=== PATIENT | male | born 1985 | race Caucasian/White ===

== ENCOUNTER → 2016-06-08 | Outpatient (CLI) | payer BC ==
--- NOTE | 2016-06-08 14:44 | CR ---
EXAMINATION: Right shoulder HISTORY: Pain COMPARISON: None TECHNIQUE: 3 views FINDINGS/IMPRESSION: There is no acute osseous abnormality, dislocation, or fracture. Bone mineraliz ation and joint spaces appear normal.
== END ==
LOC: MW.CHORTHO 07:50
PROVIDERS: ATTEND Orthopaedic Surgery
DX: M25.511 Pain in right shoulder (principal)
CPT/HCPCS: 73030-26-RT; 73030-RT

== ENCOUNTER → 2016-06-15 | Outpatient (CLI) | payer OTHER, BC ==
[~2016-06-15] MED LIST: Gadobutrol 7.5 mMOL/7.5 ML SDV IVPUSH STA; Iopamidol 612 MG/ML 50 ML SDV IARTIC ONE
--- NOTE | 2016-06-15 15:18 | CR ---
EXAMINATION: Fluoro guided right shoulder arthrogram. HISTORY: Shoulder pain. 719.41. TECHNIQUE/PROCEDURE: Written informed consent was obtained from the patient. The site of the anterior rotator interval is marked under fluoroscopy. Under aseptic conditions usin g 1% lidocaine as local anesthesia 25-gauge needle was introduced into the joint space. A small amou nt of contrast test dose was injected which freely flowed into the joint space. Afterwards, 15 cc o f cocktail consisting of saline, gadolinium and local lidocaine including CT contrast was administer ed without difficulty. There was no passage of the contrast into the subacromial space. Most of the contrast is seen within the joint space and sub coracoid bursal region. IMPRESSION: Successful Fluoro guided right shoulder arthrogram without evidence for high-grade rotat or cuff tear.
--- NOTE | 2016-06-16 09:27 | MR ---
EXAMINATION: MRI arthrogram of the right shoulder HISTORY: Pain COMPARISON: Radiographs dated 06/08/2016 TECHNIQUE: Multiplanar and multisequence images obtained of the right shoulder following the intra-a rticular administration of Gadavist. FINDINGS: There is a type II acromion. Mild acromioclavicular osteoarthritic changes are noted. The supraspinatus and infraspinatus tendons appear intact. The long head biceps tendon is present within the bicipital groove. The subscapularis and teres minor tendons appear normal. The inferior glenohu meral ligament is preserved. There is a subtle tear of the glenoid labrum extending from the10:00 to 2:00 position. The glenohumeral articular cartilage appears preserved. There is no abnormal bone ma rrow signal. IMPRESSION: 1. Subtle SLAP tear from the 10:00 to 2:00 position. 2. Mild acromioclavicular osteoarthritic changes.
== END ==
LOC: MW.DI 10:47
PROVIDERS: ATTEND Orthopaedic Surgery
DX: M25.511 Pain in right shoulder (principal); S43.431A Superior glenoid labrum lesion of right shoulder, initial encounter; X58.XXXA Exposure to other specified factors, initial encounter; M19.011 Primary osteoarthritis, right shoulder
CPT/HCPCS: 23350; 73222; 77002; A9585; Q9967

== ENCOUNTER 2016-07-12 06:41 | Day surgery (SDC) | payer OTHER, BC ==
[~2016-07-12 06:41] MED LIST changes: -Gadobutrol 7.5 mMOL/7.5 ML SDV IVPUSH STA; -Iopamidol 612 MG/ML 50 ML SDV IARTIC ONE; +Lactated Ringers 1,000 ML IV SCH; +ceFAZolin 2 GM in Premix Bag 1 BAG IV SCH
[2016-07-12] MEDS ORDERED: Midazolam 1 MG/ML 2 ML SDV ONE (07:13)
[2016-07-12] MEDS ORDERED: Propofol 200 MG/20 ML SDV ONE (07:13)
[2016-07-12] MEDS ORDERED: Rocuronium 10 MG/ML 10 ML Syringe ONE (07:13)
[2016-07-12] MEDS ORDERED: Ondansetron 4 MG/2 ML SDV ONE (07:13)
[2016-07-12] MEDS ORDERED: Lidocaine 2% 5 ML SDV ONE (07:13)
[2016-07-12] MEDS ORDERED: fentaNYL 250 MCG/5 ML SDV ONE (07:14)
--- NOTE | 2016-07-12 07:38 | PCM.PREANE ---
Preanesthetic Assessment - Procedure Proposed Procedure: Right shoulder arthroscopy, possible repair - TBD - Anesthesia/Transfusion/Family Hx Anesthesia History: Prior Anesthesia Without Reaction Transfusion History: No Prior Transfusion(s) Intubation History: Unknown - Review of Systems General: No Symptoms Pulmonary: No Symptoms Cardiovascular: No Symptoms Gastrointestinal: No symptoms Neurological: Other (R shoulder pain and limited motion ) - Physical Assessment O2 Sat by Pulse Oximetry: 99 Respiratory Rate: 16 Vital Signs: Last Vital Signs Temp 98.4 F 07/12/16 06:56 Pulse 60 07/12/16 06:56 Resp 16 07/12/16 06:56 BP 129/79 07/12/16 06:56 Pulse Ox 99 07/12/16 06:56 Height: 6 ft Weight: 255 lb ASA Class: 2 Mental Status: Alert & Oriented x3 Airway Class: Mallampati = 2 Dentition: Reports: Normal Dentition (crowded frontal lowers) Thyro-Mental Finger Breadths: 3 Mouth Opening Finger Breadths: 3 ROM/Head Extension: Full Lungs: Clear to auscultation, Normal respiratory effort Cardiovascular: Regular Rate, Regular Rhythm, No Murmurs - Allergies Allergies/Adverse Reactions: Allergies Allergy/AdvReac Type Severity Reaction Status Date / Time Sulfa (Sulfonamide Allergy Rash Verified 07/10/13 11:34 Antibiotics) - Blood Blood Available: No Product(s) Available: None - Anesthesia Plan Pre-Op Medication Ordered: None - Acknowledgements Anesthesia Type Planned: General Anesthesia, Regional Block (Possible if repair done; counseled for risk/benefit) Pt an Appropriate Candidate for the Planned Anesthesia: Yes Alternatives and Risks of Anesthesia Discussed w Pt/Guardian: Yes Pt/Guardian Understands and Agrees with Anesthesia Plan: Yes PreAnesthesia Questionnaire Endocrine/Metabolic History: Reports: Obesity/BMI 30+ Dermatologic History: Reports: Eczema - Past Surgical History Head Surgeries/Procedures: Reports: None Musculoskeletal Surgical History: Reports: Arthroscopic knee, Other (see below) Other Musculoskeletal Surgeries/Procedures:: multiple knee surgeries - SUBSTANCE USE Smoking Status *Q: Former Smoker Tobacco Use Within Last Twelve Months: Other (see below) Recreational Drug Use History: No - HOME MEDS Home Medications: Home Meds . [No Known Home Meds] 07/08/16 [History] - CURRENT (IN HOUSE) MEDS Current Meds: Current Medications Hydrocodone Bitart/Acetaminophen ([place] 325-10 Mg) 1 - 2 tab PO Q4H PRN PRN Reason: Pain Lactated Ringer's (Ringers, Lactated) 1,000 mls @ 100 mls/hr IV ASDIRECTED [facility] Last Admin: 07/12/16 06:57 Dose: 100 mls/hr Cefazolin Sodium/Dextrose 2 gm (/ Premix) 50 mls @ 100 mls/hr IV ONCALL [facility] Ketorolac Tromethamine (Toradol) 10 mg PO Q6H PRN PRN Reason: Pain Stop: 07/17/16 08:01 Discontinued Medications Fentanyl (Sublimaze) Confirm Administered Dose 250 mcg .ROUTE .STK-MED ONE Stop: 07/12/16 07:15 Lidocaine (Xylocaine-Mpf 2%) Confirm Administered Dose 5 ml .ROUTE .STK-MED ONE Stop: 07/12/16 07:14 Midazolam HCl (Versed 1 Mg/Ml) Confirm Administered Dose 2 mg .ROUTE .STK-MED ONE Stop: 07/12/16 07:14 Ondansetron HCl (Zofran) Confirm Administered Dose 4 mg .ROUTE .STK-MED ONE Stop: 07/12/16 07:14 Propofol (Diprivan 20 Ml) Confirm Administered Dose 200 mg .ROUTE .STK-MED ONE Stop: 07/12/16 07:14 Rocuronium [place] (Zemuron) Confirm Administered Dose 100 mg .ROUTE .STK-MED ONE Stop: 07/12/16 07:14
[2016-07-12] MEDS ORDERED: HYDROmorphone 2 MG/ML Syringe ONE (07:41)
[2016-07-12] MEDS ORDERED: Acetaminophen/HYDROcodone 325-10 MG Tab PO PRN (08:00)
[2016-07-12] MEDS ORDERED: Ketorolac 10 MG Tab PO PRN (08:00)
[2016-07-12] MEDS ORDERED: fentaNYL 100 MCG/2 ML SDV IVPUSH PRN (09:10)
[2016-07-12] MEDS ORDERED: Bupivacaine 0.5% 10 ML SDV ONE (09:17)
[2016-07-12] MEDS ORDERED: Lidocaine 2% with EPINEPHrine 1:100,000 20 ML MDV ONE (09:19)
[2016-07-12] MEDS ORDERED: fentaNYL 100 MCG/2 ML SDV ONE (09:26)
[2016-07-12] MEDS ORDERED: Neostigmine Methylsulfate 1 MG/ML 5 ML Syringe ONE (09:44)
--- NOTE | 2016-07-12 10:03 | PCM.OPNOTE ---
- General Post-Op/Procedure Note Date of Surgery/Procedure: 07/12/16 Operative Procedure(s): R shoulder arthroscopy with SAD, limited debridement of superior labrum Post-Op Diagnosis: R shoulder impingement, R shoulder type 1 SLAP tear Anesthesia Technique: General ET tube Primary Surgeon: Shelby King Director Chemistry: Shana Osei Director Chemistry: Aubrey Shah in mLs: 5 Condition: Good Free Text/Narrative:: #[id number]
--- NOTE | 2016-07-12 10:32 | PCM.SN ---
- Free Text/Narrative Note: At end case right interscalene regional block done under sterile conditions. Patient had been extubated. Electrostim used. No aspiration of blood occurred. Needle advanced to twitch immediately of the deltoid observed. Injection of 40 ml of local injected. The content was 0.5 % bupivacaine (35 ml), 5 mg of dexamethasone, lidocaine 2% (15ml). 40 ml of this mixture was injected. Patient states numbness in hands in PAR with weakness. Pain indicated at 3/10 when he had a resting pain presurgery of 6-7/10. Will reassess at arrival back to [facility] area.
--- NOTE | 2016-07-12 10:53 | PCM.POSTAN ---
POST ANESTHESIA ASSESSMENT - MENTAL STATUS Mental Status: alert, oriented - RESPIRATORY Respiratory Status: respiratory rate WNL, airway patent, O2 saturation stable - CARDIOVASCULAR CV Status: pulse rate WNL, blood pressure stable - GASTROINTESTINAL GI Status: no symptoms - PAIN Pain Score: 3 Free Text/Narrative:: no anesthesia problems - POST OP HYDRATION Hydration Status: adequate & stable
[2016-07-12 11:49] VITALS: BP 133/43
--- NOTE | 2016-07-12 14:06 | OR ---
SURGEON: Shelby King MD DATE OF PROCEDURE: 07/12/2016 PREOPERATIVE DIAGNOSES: 1. Right shoulder impingement syndrome. 2. Right subtle SLAP tear. 3. Right biceps tendinopathy. POSTOPERATIVE DIAGNOSES: 1. Right shoulder impingement syndrome. 2. Right shoulder SLAP tear, type 1. PROCEDURE: Right shoulder arthroscopy with. 1. Subacromial decompression with release of coracoacromial ligament and acromioplasty. 2. Limited debridement of the superior labrum. SHIP'S CAPTAIN: 1. Shana Osei PA-C. 2. Aubrey Shah PA-C. ANESTHESIA: General. ESTIMATED BLOOD LOSS: 5 mL. TOURNIQUET TIME: 0 minutes. COMPLICATIONS: None. DVT PROPHYLAXIS: PAS boot to bilateral lower extremities. IMPLANTS USED: None. BRIEF HISTORY: Michael is a 31-year-old male, who injured his right upper extremity while at work. 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 He has had persistent pain in the shoulder since that time. An MRI/arthrogram did show a subtle tear of the superior labrum. Due to his lack of response to conservative treatment, I did recommend surgical intervention. The risks and goals of procedure were discussed with the patient and documented preoperatively. He agreed to proceed. DESCRIPTION OF PROCEDURE: The patient was properly identified and brought to the operating room. He was transferred from the OR cart and placed on the operating table in supine position. General anesthesia was administered. After adequate anesthesia was obtained, the patient was placed in a beach-chair position. Care was taken to pad all bony prominences. His head was secured. He did have full range of motion at his shoulder passively. There was no sign of instability. The right upper extremity was then prepped in standard fashion using ChloraPrep solution. It was then sterilely draped. A time-out was performed to ensure correct site and procedure. Preoperative antibiotics were given. The surgical site had been marked preoperatively. Bony landmarks were marked with a marking pen. Approximately 30 mL of normal saline was introduced into the glenohumeral joint via posterior approach. A posterior portal was then established. Blunt trocar and cannula were introduced into the glenohumeral joint. The rotator interval showed mild synovitis. An anterior portal was then established. The subscapularis was visualized and probed. It was found to be intact. No loose bodies were noted within the subscapular recess. The anterior labrum was inspected. No significant tearing was noted. The biceps was visualized. It did not have any surrounding synovitis. The biceps tendon was then pulled into the joint. I did not appreciate any synovitis distally and there did not appear to be any tearing of the tendon. The attachment of the biceps to the superior labrum was then inspected. There was some minor peel back of the superior labrum at the insertion site, however, this was not full thickness. There was no tearing of the posterior labrum as well. Both the humeral head and glenoid showed no signs of degenerative changes. The axillary pouch showed no loose bodies. The arm was then brought into an abducted and externally rotated position. The bare area was noted posteriorly. As I progressed anteriorly, there was attachment of the rotator cuff with no sign of tearing. The instruments were then removed from the glenohumeral joint. The arm was brought back into a neutral position. I then entered the subacromial space. A lateral portal was then established. Using a combination of electrocautery and shaver, a bursectomy was performed. He did have a large amount of hemorrhagic bursa which was resected. The undersurface of the acromion was cleared. The coracoacromial ligament was released anteriorly. He did have a large anterior hook of the acromion and an acromioplasty was performed using a 5.0 mm bur. This provided good decompression of the subacromial space. After the bursectomy had been performed, I was able to visualize the rotator cuff. This was extensively probed and no tearing was noted. I then re-entered the glenohumeral joint. The superior labral tear was again inspected. Since it was not full thickness and there was no sign of instability with the biceps, I elected to debride the tear only. This was performed with a shaver and rasp. Instruments were then removed from the shoulder. The portal sites were closed with 3-0 nylon. Xeroform gauze was placed over the wound and a bulky dressing was applied. He was awakened from his anesthetic. An interscalene block was performed by the anesthesia staff at the completion of the case. Care was left to the anesthesia staff at the completion for placement of the block. All needle and sponge counts were correct. MADI / DONNIE /[id number]
== END 2016-07-12 12:10 | disposition home or self-care (01) ==
LOC: MW.SDS 06:41
PROVIDERS: ATTEND Orthopaedic Surgery
PROC: 0RNJ4ZZ Release Right Shoulder Joint, Percutaneous Endoscopic Approach (ICD-10-PCS; principal; 2016-07-12)
PROC: 0RBJ4ZZ Excision of Right Shoulder Joint, Percutaneous Endoscopic Approach (ICD-10-PCS; 2016-07-12)
DX: M75.41 Impingement syndrome of right shoulder (principal); S43.431A Superior glenoid labrum lesion of right shoulder, initial encounter; M65.811 Other synovitis and tenosynovitis, right shoulder; E66.9 Obesity, unspecified; Z87.891 Personal history of nicotine dependence; Z88.2 Allergy status to sulfonamides; Z98.890 Other specified postprocedural states; Z68.32 Body mass index [BMI] 32.0-32.9, adult
CPT/HCPCS: 29822; 29826; J0690; J1170; J2250; J2405; J3010; J7120; 01630; 64415; 88304; J2704

== ENCOUNTER 2019-09-10 14:05 | Emergency (ER) | payer BC, OTHER ==
[2019-09-10] MEDS ORDERED: Sodium Chloride 0.9% 1,000 ML IV ONE (14:44)
--- NOTE | 2019-09-10 15:38 | EDM.PDOC ---
ED HPI GENERAL MEDICAL PROBLEM - General Chief Complaint: Respiratory Problem Stated Complaint: STOPPED BREATHING IN SLEEP Time Seen by Provider: 09/10/19 14:08 Source of Information: Reports: Patient History Limitations: Reports: No Limitations - History of Present Illness INITIAL COMMENTS - FREE TEXT/NARRATIVE: HISTORY AND PHYSICAL: History of present illness: Patient is a 34-year-old male who presents to the emergency room with complaints of shortness of breath. Patient reports last night he had a migraine headache and had taken some Tylenol before going to bed. He was awoken to his girlfriend's dog pulling at his face and he noticed his fingernails were dark blue/black in appearance. He said he was gasping for air and was concerned he had a spell of apnea. While trying to catch his breath he felt like he had "wet lungs" and was coughing up copious amounts of phlegm. [facility] and they recommended he come into the emergency room for evaluation. They were concerned he may have COVID-19 due to his symptoms. Patient states he is not as concerned as he believes he has already had COVID-19 back in April. Since the episode that occurred upon awakening he says he does still feel short of breath which is exacerbated with physical activity. Patient does believe he has a history of sleep apnea, has been tested for this twice previously. Last sleep apnea screening was done in 2017 but states he "could not sleep" due to being in a foreign place and was uncomfortable in his surrounding. Review of systems: As per history of present illness and below otherwise all systems reviewed and negative. Past medical history: As per history of present illness and as reviewed below otherwise noncontributory. Surgical history: As per history of present illness and as reviewed below otherwise noncontributory. Social history: See social history for further information Family history: As per history of present illness and as reviewed below otherwise noncontributory. Physical exam: General: Well developed and well nourished 34-year-old male. Alert and oriented. Nontoxic-appearing and in no acute distress. HEENT: Atraumatic, normocephalic, pupils equal and reactive bilaterally, negative for conjunctival pallor or scleral icterus, mucous membranes moist, TMs normal bilaterally, throat clear, neck supple, nontender, trachea midline. No drooling or trismus noted. No meningeal signs. No hot potato voice noted. Lungs: Clear to auscultation, breath sounds equal bilaterally, chest nontender. Heart: S1S2, regular rate and rhythm without overt murmur Abdomen: Soft, nondistended, nontender. Negative for masses or hepatosplenomegaly. Negative for costovertebral tenderness. Skin: Intact, warm, dry. No lesions or rashes noted. Extremities: Atraumatic, moves all extremities per self without difficulty or deficits, negative for cords or calf pain. Neurovascular unremarkable. Neuro: Awake, alert, oriented. Cranial nerves II through XII unremarkable. Cerebellum unremarkable. Motor and sensory unremarkable throughout. Exam nonfocal. Notes: My physical examination shows no acute findings. His lung sounds are clear. Vital signs are stable. He states "I just wanted to get checked out to make sure everything is okay". States he is currently asymptomatic and offers no current complaints or concerns other than feeling anxious about this morning's episode. Chest x-ray shows no acute findings. EKG that was done at 1501 shows sinus tachycardia with a rate of 102. Lab work is unremarkable with the exception of hypocalcemia. He is asymptomatic with this. Upon reevaluating the patient he states he feels "fine". His vital signs are stable. We discussed the need for follow-up and he should have a sleep study done. He states he did receive a call from the [facility] stating that he was approved to have a sleep study repeated, he just needs to call to set up the appointment. Follow-up and supportive care measures were reviewed and discussed. Voices understanding and is agreeable to plan of care. Denies any further questions or concerns at this time. Diagnostics: CBC, CMP, CXR, Garcia, EKG Therapeutics: IV fluids Prescription: None Impression: Encounter for medical screening exam Dyspnea, resolved Plan: 1. Your chest x-ray, EKG, COVID-19 and lab work was normal with the exception of low calcium. You can take vitamin D [id number] as directed. [facility] to have [facility]uated in the next 1 to 2 weeks. 2. [facility] call the [facility] to have a repeat "Sleep Apnea" study done. 3. Follow up with your primary care provider. Return to the ED as needed as discussed. Definitive disposition and diagnosis as appropriate pending reevaluation and review of above. genralize Pain Score (Numeric/FACES): 6 - Related Data Allergies Allergy/AdvReac Type Severity Reaction Status Date / Time Sulfa (Sulfonamide Allergy Rash Verified 09/10/19 14:25 Antibiotics) Home Meds: Home Meds Diclofenac Sodium mg PO DAILY 09/10/19 [History] Mirtazapine 30 mg PO BEDTIME 09/10/19 [History] Past Medical History HEENT History: Reports: Hard of Hearing Psychiatric History: Reports: PTSD Endocrine/Metabolic History: Reports: Obesity/BMI 30+ Dermatologic History: Reports: Eczema - Infectious Disease History Infectious Disease History: Reports: Chicken Pox - Past Surgical History Head Surgeries/Procedures: Reports: None Musculoskeletal Surgical History: Reports: Arthroscopic Knee, Arthroscopic Procedure, Other (See Below) Social & Family History - Family History Family Medical History: Noncontributory - Tobacco Use Smoking Status *Q: Former Smoker Used Tobacco, but Quit: Yes Month/Year Tobacco Last Used: 2009 - Caffeine Use Caffeine Use: Reports: Coffee - Recreational Drug Use Recreational Drug Use: No ED ROS GENERAL - Review of Systems Review Of Systems: Comprehensive ROS is negative, except as noted in HPI. ED EXAM, GENERAL - Physical Exam Exam: See Below (See dictation) Course - Vital Signs Last Recorded V/S: Last Vital Signs Temp 97.9 F 09/10/19 16:39 Pulse 99 09/10/19 16:39 Resp 18 09/10/19 16:39 BP 151/92 H 09/10/19 16:39 Pulse Ox 93 L 09/10/19 16:39 - Orders/Labs/Meds Orders: Active Orders 24 hr Category Date Time Status EKG Documentation Completion [RC] STAT Care 09/10/19 14:44 Active Labs: Laboratory Tests 09/10/19 09/10/19 09/10/19 Range/Units 15:21 15:22 15:22 WBC (4.0-11.0) K/uL RBC (4.50-5.90) M/uL Hgb (13.0-17.0) g/dL Hct (38.0-50.0) % MCV (80.0-98.0) fL MCH (27.0-32.0) pg MCHC (31.0-37.0) g/dL RDW Std Deviation (28.0-62.0) fl RDW Coeff of Lelia (11.0-15.0) % Plt Count (150-400) K/uL MPV (7.40-12.00) fL Neut % (Auto) (48.0-80.0) % Lymph % (Auto) (16.0-40.0) % [place] % (Auto) (0.0-15.0) % Eos % (Auto) (0.0-7.0) % Baso % (Auto) (0.0-1.5) % Neut # (Auto) (1.4-5.7) K/uL Lymph # (Auto) (0.6-2.4) K/uL [place] # (Auto) (0.0-0.8) K/uL Eos # (Auto) (0.0-0.7) K/uL Baso # (Auto) (0.0-0.1) K/uL Nucleated RBC % /100WBC Nucleated RBCs # K/uL Lactate 1.8 (0.20-2.00) mmol/L Sodium 142 (136-148) mmol/L Potassium 3.8 (3.5-5.1) mmol/L Chloride 105 (98-107) mmol/L Carbon Dioxide 28.9 (21.0-32.0) mmol/L BUN 12 (7.0-18.0) mg/dL Creatinine 1.0 (0.8-1.3) mg/dL Est Cr Clr Drug Dosing 114.24 mL/min Estimated GFR (MDRD) > 60.0 ml/min Glucose 103 (74-106) mg/dL Calcium 8.0 L (8.5-10.1) mg/dL Total Bilirubin 0.4 (0.2-1.0) mg/dL AST 64 H (15-37) IU/L ALT 106 H (14-63) IU/L Alkaline Phosphatase 90 (46-116) U/L Troponin I <0.050 (0.000-0.056) ng/mL Total Protein 7.1 (6.4-8.2) g/dL Albumin 3.9 (3.4-5.0) g/dL Globulin 3.2 (2.6-4.0) g/dL Albumin/Globulin Ratio 1.2 (0.9-1.6) SARS-CoV-2 RNA (RT-PCR) NEGATIVE (NEGATIVE) 09/10/19 Range/Units 16:08 WBC 8.21 (4.0-11.0) K/uL RBC 4.99 (4.50-5.90) M/uL Hgb 14.8 (13.0-17.0) g/dL Hct 44.7 (38.0-50.0) % MCV 89.6 (80.0-98.0) fL MCH 29.7 (27.0-32.0) pg MCHC 33.1 (31.0-37.0) g/dL RDW Std Deviation 43.1 (28.0-62.0) fl RDW Coeff of Lelia 13 (11.0-15.0) % Plt Count 234 (150-400) K/uL MPV 10.80 (7.40-12.00) fL Neut % (Auto) 59.7 (48.0-80.0) % Lymph % (Auto) 28.3 (16.0-40.0) % [place] % (Auto) 11.1 (0.0-15.0) % Eos % (Auto) 0.7 (0.0-7.0) % Baso % (Auto) 0.2 (0.0-1.5) % Neut # (Auto) 4.9 (1.4-5.7) K/uL Lymph # (Auto) 2.3 (0.6-2.4) K/uL [place] # (Auto) 0.9 H (0.0-0.8) K/uL Eos # (Auto) 0.1 (0.0-0.7) K/uL Baso # (Auto) 0.0 (0.0-0.1) K/uL Nucleated RBC % 0.0 /100WBC Nucleated RBCs # 0 K/uL Lactate (0.20-2.00) mmol/L Sodium (136-148) mmol/L Potassium (3.5-5.1) mmol/L Chloride (98-107) mmol/L Carbon Dioxide (21.0-32.0) mmol/L BUN (7.0-18.0) mg/dL Creatinine (0.8-1.3) mg/dL Est Cr Clr Drug Dosing mL/min Estimated GFR (MDRD) ml/min Glucose (74-106) mg/dL Calcium (8.5-10.1) mg/dL Total Bilirubin (0.2-1.0) mg/dL AST (15-37) IU/L ALT (14-63) IU/L Alkaline Phosphatase (46-116) U/L Troponin I (0.000-0.056) ng/mL Total Protein (6.4-8.2) g/dL Albumin (3.4-5.0) g/dL Globulin (2.6-4.0) g/dL Albumin/Globulin Ratio (0.9-1.6) SARS-CoV-2 RNA (RT-PCR) (NEGATIVE) Meds: Medications Discontinued Medications Generic Name Dose Route Start Last Admin Trade Name Freq PRN Reason Stop Dose Admin Sodium Chloride 1,000 mls @ 999 mls/hr 09/10/19 14:44 09/10/19 15:16 Normal Saline IV 09/10/19 15:44 999 mls/hr STAT ONE Administration Departure - Departure Time of Disposition: 17:08 Disposition: Home, Self-Care 01 Clinical Impression: Encounter for medical screening examination Dyspnea Qualifiers: Dyspnea type: unspecified Qualified Code(s): R06.00 - Dyspnea, unspecified - Discharge Information Instructions: Shortness of Breath, Adult, [id number] Referrals: Trinity Rodriguez [facility] [Primary Care Provider] - Forms: ED Department Discharge Additional Instructions: The following information is given to patients seen in the emergency department who are being discharged to home. This information is to outline your options for follow-up care. We provide all patients seen in our emergency department with a follow-up referral. The need for follow-up, as well as the timing and circumstances, are variable depending upon the specifics of your emergency department visit. If you don't have a primary care physician on staff, we will provide you with a referral. We always advise you to contact your personal physician following an emergency department visit to inform them of the circumstance of the visit and for follow-up with them and/or the need for any referrals to a consulting specialist. The emergency department will also refer you to a specialist when appropriate. This referral assures that you have the opportunity for follow-up care with a specialist. All of these measure are taken in an effort to provide you with optimal care, which includes your follow-up. Under all circumstances we always encourage you to contact your private physician who remains a resource for coordinating your care. When calling for follow-up care, please make the office aware that this follow-up is from your recent emergency room visit. If for any reason you are refused follow-up, please contact the [facility] Emergency Department at and asked to speak to the emergency department charge nurse. [facility] [address] [place] [address] [id number] [facility] [address] [place] [id number] 1. Your chest x-ray, EKG, COVID-19 and lab work was normal with the exception of low calcium. You can take vitamin D [id number] as directed. [facility] in the next 1 to 2 weeks. 2. [facility] call [facility] to have a repeat "Sleep Apnea" study done. 3. Follow up with your primary care provider. Return to the ED as needed as discussed. Sepsis Event Note (ED) - Evaluation Sepsis Screening Result: No Definite Risk - Focused Exam Vital Signs: Vital Signs Temp Pulse Resp BP Pulse Ox 09/10/19 16:39 97.9 F 99 18 151/92 H 93 L 09/10/19 14:27 97.8 F 113 H 18 148/88 H 95 - My Orders Last 24 Hours: My Active Orders 09/10/19 14:44 EKG Documentation Completion [RC] STAT - Assessment/Plan Last 24 Hours: My Active Orders 09/10/19 14:44 EKG Documentation Completion [RC] STAT
--- NOTE | 2019-09-10 16:18 | CR ---
Chest: 2 views of the chest were obtained. Comparison: No prior chest imaging is available. Heart size and mediastinum are normal. Lungs are clear with no acute parenchymal change. Bony structures are unremarkable. Impression: 1. Nothing acute is seen on 2 view chest x-ray. Diagnostic code #1 This report was dictated in MDT
[2019-09-10 17:00] LABS: BLOOD UREA NITROGEN,BUN 12 mg/dL (7.0-18.0); CARBON DIOXIDE,CO2 28.9 mmol/L (21.0-32.0); CHLORIDE,CL 105 mmol/L (98-107); GLUCOSE RANDOM 103 mg/dL (74-106); POTASSIUM,K 3.8 mmol/L (3.5-5.1); SODIUM,NA 142 mmol/L (136-148)
[2019-09-10 18:07] VITALS: BP 156/87; PULSE 89
== END 2019-09-10 17:19 | disposition home or self-care (01) ==
LOC: MW.ED 14:05
DX: R06.00 Dyspnea, unspecified (principal); Z20.828 Contact with and (suspected) exposure to other viral communicable diseases; E66.9 Obesity, unspecified; Z68.39 Body mass index [BMI] 39.0-39.9, adult; Z87.891 Personal history of nicotine dependence; Z88.2 Allergy status to sulfonamides
CPT/HCPCS: 36415; 71046; 80053; 83605; 84484; 85025; 87635; 93005; 99285; J7030; 99283; U0002

== ENCOUNTER 2024-03-27 23:03 | Emergency (ER) | payer OTHER ==
[2024-03-27] MEDS: Diphtheria,Pertussis(Acell),Tetanus Vaccine 0.5 ML Syringe IM ONE (23:45)
[2024-03-28] MEDS: Lidocaine 1% 10 ML MDV INFILT ONE (00:38)
[2024-03-28] MEDS: Bacitracin Oint 1 GM U/D Packet TOP ONE (01:19)
[2024-03-28 01:23] VITALS: BP 132/90; PULSE 74
== END 2024-03-28 01:22 | disposition home or self-care (01) ==
LOC: MW.ED 23:03
DX: S61.411A Laceration without foreign body of right hand, initial encounter (principal); E66.9 Obesity, unspecified; Z68.41 Body mass index [BMI] 40.0-44.9, adult; Z88.2 Allergy status to sulfonamides; W45.8XXA Other foreign body or object entering through skin, initial encounter; Z23 Encounter for immunization
CPT/HCPCS: 12001; 90471; 90715; 99282-25; J3490

== ENCOUNTER 2024-04-28 06:17 | Emergency (ER) | payer OTHER ==
[2024-04-28 07:25] LABS: AMPHETAMINES SCREEN, URINE NEGATIVE (CUTOFF=500); BARBITURATE SCREEN,URINE NEGATIVE (CUTOFF=200); BENZODIAZEPINES SCREEN,URINE NEGATIVE (CUTOFF=150); BUPRENORPHINE SCREEN,URINE NEGATIVE (CUTOFF=10); METHADONE SCREEN, URINE NEGATIVE (CUTOFF=200); METHAMPHETAMINES SCREEN, URINE NEGATIVE (CUTOFF=500); OXYCODONE SCREEN,URINE NEGATIVE (CUT0FF=100); PCP SCREEN,URINE NEGATIVE (CUTOFF=25); THC SCREEN,URINE 20 NG/ML NEGATIVE (CUTOFF=50)
[2024-04-28 07:32] LABS: APPEARANCE,URINE CLEAR; BILIRUBIN,URINE NEGATIVE; COLOR,URINE YELLOW; GLUCOSE,URINE NEGATIVE; KETONES,URINE NEGATIVE; OCCULT BLOOD,URINE TRACE; PH,URINE 6.5; PROTEIN,URINE NEGATIVE
[2024-04-28 07:33] LABS: BACTERIA,URINE FEW (NEGATIVE); EPITHELIAL CELLS,URINE OCCASIONAL (NONE-FEW); LEUKOCYTE ESTERASE,URINE NEGATIVE (NEGATIVE); NITRITE,URINE NEGATIVE (NEGATIVE); RBC,URINE 0-2 (0-2/HPF); UROBILINOGEN,URINE 0.2 (<1.0); WBC,URINE 0-1 (0-5/HPF)
[2024-04-28 07:46] LABS: BASOPHILS ABSOLUTE AUTO 0.04 K/uL (0.00-0.20); BASOPHILS PERCENT AUTO 0.5 % (0.0-1.0); EOSINOPHILS ABSOLUTE AUTO 0.11 K/uL (0.00-0.45); EOSINOPHILS PERCENT AUTO 1.3 % (0.0-6.0); HEMATOCRIT 43.8 % (42.0-52.0); HEMOGLOBIN 15.2 g/dL (14.0-18.0); IMMATURE GRAN ABSOLUTE AUTO 0.02 K/uL (0.00-0.05); IMMATURE GRAN PERCENT AUTO 0.2 % (0.0-0.4); LYMPHOCYTES ABSOLUTE AUTO 3.18 K/uL (1.00-4.80); LYMPHOCYTES PERCENT AUTO 36.2 % (24.0-44.0); MEAN CORPUSCULAR HEMOGLOBIN 28.8 pg (28.0-32.0); MEAN CORPUSCULAR HGB CONC 34.7 g/dL (32.0-36.0); MEAN CORPUSCULAR VOLUME 83.1 fL (83.0-99.0); MEAN PLATELET VOLUME 11.1 fL (9.4-12.4); MONOCYTES ABSOLUTE AUTO 0.61 K/uL (0.00-0.80); MONOCYTES PERCENT AUTO 6.9 % (0.0-8.0); NEUTROPHILS ABSOLUTE AUTO 4.83 K/uL (1.80-7.70); NEUTROPHILS PERCENT AUTO 54.9 % (41.0-71.0); PLATELET COUNT,PLT 237 K/uL (150-400); RED BLOOD CELL COUNT 5.27 M/uL (4.52-5.90); WHITE BLOOD CELL COUNT,WBC 8.79 K/uL (3.9-11.3)
[2024-04-28 08:17] LABS: A/G RATIO 1.3 (0.9-1.6); ACETAMINOPHEN <2.0 ug/mL; ALANINE AMINOTRANSFERASE,ALT 83 IU/L (14-63); ALBUMIN 4.1 g/dL (3.4-5.0); ALKALINE PHOSPHATASE 104 U/L (46-116); ASPARTATE AMNIOTRANSFERASE,AST 44 IU/L (15-37); BILIRUBIN TOTAL 0.5 mg/dL (0.2-1.0); BLOOD UREA NITROGEN,BUN 12 mg/dL (7.0-18.0); CALCIUM 8.7 mg/dL (8.5-10.1); CARBON DIOXIDE,CO2 25.1 mmol/L (21.0-32.0); CHLORIDE,CL 107 mmol/L (98-107); CREATININE 1.1 mg/dL (0.8-1.3); EST CRCL DRUG DOSING (CG) 99.94 mL/min; ETHANOL BLOOD MEDICAL 191 mg/dL; GLUCOSE RANDOM 91 mg/dL (74-106); PROTEIN TOTAL,TP 7.2 g/dL (6.4-8.2); SALICYLATE 0.5 mg/dL (0.0-20.0); SODIUM,NA 143 mmol/L (136-148); TSH ULTRASENSITIVE 2.12 uIU/mL (0.36-3.74)
[2024-04-28 08:18] LABS: ESTIMATED GFR 88 mL/min (>60)
[2024-04-28 14:00] VITALS: BP 126/75; PULSE 87
== END 2024-04-28 14:58 ==
LOC: MW.ED 06:17
DX: R45.851 Suicidal ideations (principal); F10.129 Alcohol abuse with intoxication, unspecified; I10 Essential (primary) hypertension; E66.9 Obesity, unspecified; Z68.41 Body mass index [BMI] 40.0-44.9, adult; Z88.2 Allergy status to sulfonamides; Z79.899 Other long term (current) drug therapy; Y90.6 Blood alcohol level of 120-199 mg/100 ml
CPT/HCPCS: 36415; 80053; 80143; 80179; 80305-QW; 80307; 81001; 83735; 84443; 85025; 93005; 99285